=== PATIENT | female | born 1995 | race Caucasian/White ===

== ENCOUNTER 2017-09-25 11:08 | Emergency (ER) | payer MEDICAID, OTHER ==
[2017-09-25 11:14] VITALS: BMI 37.2
--- NOTE | 2017-09-25 12:01 | C.PDOC ---
History Of Present Illness 21 year old female presents to the ED complaining of left lower quadrant pain since yesterday. Associated symptoms include watery diarrhea, now resolved. Patient denies fever, nausea, or vomiting. LMP: August. LLQ PAIN SINCE YEST. +WATERY DIARRHEA, NOW RESOLVED. NO FEVER, [place]. LMP AUGUST. EXAM NAD ABD MILD LLQ TEND SOFT NO R/G REMAINDER NEG Time Seen by Provider: 09/25/17 11:25 Chief Complaint (Nursing): Abdominal Pain History Per: Patient History/Exam Limitations: no limitations Onset/Duration Of Symptoms: Days Current Symptoms Are (Timing): Still Present Location Of Pain/Discomfort: LLQ Quality Of Discomfort: "Pain" Associated Symptoms: Diarrhea. denies: Fever, Nausea, Vomiting Past Medical History Reviewed: Historical Data, Nursing Documentation, Vital Signs Vital Signs: Last Vital Signs Temp 98.6 F 09/25/17 11:15 Pulse 84 09/25/17 11:15 Resp 17 09/25/17 11:15 BP 106/73 09/25/17 11:15 Pulse Ox 100 09/25/17 13:06 - Medical History PMH: Gastritis Surgical History: No Surg Hx Family History: States: No Known Family Hx - Social History Hx Tobacco Use: No Hx Alcohol Use: Yes Hx Substance Use: No - Immunization History Hx Tetanus Toxoid Vaccination: No Hx Influenza Vaccination: No Hx Pneumococcal Vaccination: No Review Of Systems Except As Marked, All Systems Reviewed And Found Negative. Constitutional: Negative for: Fever, Chills Gastrointestinal: Positive for: Abdominal Pain (LLQ), Diarrhea. Negative for: Nausea, Vomiting Musculoskeletal: Positive for: Other Physical Exam - Physical Exam Appears: Non-toxic, No Acute Distress Skin: Normal Color, Warm, Dry Head: Atraumatic, Normacephalic Eye(s): bilateral: Normal Inspection Nose: Normal Oral Mucosa: Moist Neck: Supple Cardiovascular: Rhythm Regular Respiratory: Other (NARD) Gastrointestinal/Abdominal: Soft, Tenderness (Mild tenderness to LLQ), No Guarding, No Rebound Neurological/Psych: Oriented x3, Normal Speech Gait: Steady ED Course And Treatment - Laboratory Results Result Diagrams: 09/25/17 12:29 09/25/17 12:29 Urine POC: Negative O2 Sat by Pulse Oximetry: 100 (RA) Pulse Ox Interpretation: Normal Progress Note: Patient assessed and examined. Urine collected and sent to the labs for analysis. Patient given Fluids, Bentyl 20mg IM and Lomotil. Patient is resting comfortably, abdomen remains soft, and patient is tolerating PO. Patient feels comfortable going home. Patient will be discharged home and is being advised to follow up with physician/clinic in 1-2 days. Patient given Rx for Lonox and Bentyl. Progress - Data Reviewed Data Reviewed: Lab, Diagnostic imaging Disposition Counseled Patient/Family Regarding: Studies Performed, Diagnosis, Need For Followup, Rx Given - Disposition Referrals: [facility] [Outside] [facility] [Outside] Disposition: HOME/ ROUTINE Disposition Time: 13:00 Condition: IMPROVED Prescriptions: Atropine/Diphenoxylate [Lonox 0.025 MG-2.5 MG] 1 tab PO BID #6 tab Dicyclomine [Bentyl] 20 mg PO TID PRN #12 tab PRN Reason: Pain Instructions: Viral Gastroenteritis, Adult (DC) Forms: [employer] (Qatari) - Clinical Impression Clinical Impression: Diarrhea, Abdominal pain - Scribe Statement The provider has reviewed the documentation as recorded by the Scribconsuelo Montemayor All medical record entries made by the Omaribconsuelo were at my direction and personally dictated by me. I have reviewed the chart and agree that the record accurately reflects my personal performance of the history, physical exam, medical decision making, and the department course for this patient. I have also personally directed, reviewed, and agree with the discharge instructions and disposition.
[2017-09-25] MEDS ORDERED: Sodium Chloride 0.9% 1,000 ML IV ONE (12:02)
[2017-09-25] MEDS ORDERED: Atropine-Diphenoxylate 0.025-2.5 mg Tab PO STA (12:02)
[2017-09-25 12:21] LABS: SQUAMOUS EPITHIAL 10 /hpf (0-5); URINE BILIRUBIN NEGATIVE (NEGATIVE); URINE BLOOD NEGATIVE (NEGATIVE); URINE CLARITY Hazy (Clear); URINE COLOR Yellow (YELLOW); URINE GLUCOSE (UA) NORMAL (Normal); URINE LEUKOCYTE ESTERASE TRACE Leu/uL (Negative); URINE PROTEIN NEGATIVE (NEGATIVE); URINE UROBILINOGEN NORMAL mg/dL (0.2-1.0)
[2017-09-25] MEDS ORDERED: Sodium Chloride 0.9% 1,000 ML ONE (12:21)
[2017-09-25] MEDS ORDERED: Atropine-Diphenoxylate 0.025-2.5 mg Tab ONE (12:21)
[2017-09-25 12:38] LABS: BASO % 0.4 % (0.0-2.0); EOS # 0.1 K/uL (0.0-0.7); HEMOGLOBIN 12.6 g/dL (11.0-16.0); LYMPH # 1.6 K/uL (1.0-4.3); LYMPH % 17.3 % (20.0-40.0); MEAN CELL VOLUME 84.4 fL (81.0-99.0); MEAN CORPUSCULAR HEMOGLOBIN 28.6 pg (27.0-31.0); MEAN CORPUSCULAR HGB CONC 33.9 g/dL (33.0-37.0); MEAN PLATELET VOLUME 9.7 fL (7.2-11.7); MONO # 0.5 K/uL (0.0-0.8); MONO % 5.3 % (0.0-10.0); NEUT # 6.9 K/uL (1.8-7.0); RBC 4.39 Mil/uL (3.80-5.20); WHITE BLOOD COUNT 9.1 K/uL (4.8-10.8)
[2017-09-25 12:53] LABS: BLOOD UREA NITROGEN 11 mg/dL (7-17); CALCIUM 9.2 mg/dl (8.6-10.4); GFR AFRICAN-AMERICAN > 60; GFR NON-AFRICAN AMERICAN > 60
[2017-09-25 13:19] VITALS: BP 126/73; PULSE 76; RESP 18; TEMP 98; O2SAT 98
== END 2017-09-25 13:18 | disposition home or self-care (01) ==
LOC: C.ER 11:08
DX: R10.32 Left lower quadrant pain (principal); R19.7 Diarrhea, unspecified
CPT/HCPCS: 80048; 81001; 85025; 96360; 96372; 99284; J0500; J7030

== ENCOUNTER 2018-01-25 17:19 | Emergency (ER) | payer OTHER ==
[2018-01-25 17:19] VITALS: BMI 37.2
[2018-01-25 17:37] VITALS: O2SAT 100
[2018-01-25 18:25] LABS: SQUAMOUS EPITHIAL 3 /hpf (0-5); URINE BILIRUBIN NEGATIVE (NEGATIVE); URINE CLARITY Clear (Clear); URINE COLOR Yellow (YELLOW); URINE GLUCOSE (UA) NORMAL (Normal); URINE LEUKOCYTE ESTERASE NEG Leu/uL (Negative); URINE PROTEIN NEGATIVE (NEGATIVE); URINE UROBILINOGEN NORMAL mg/dL (0.2-1.0)
[2018-01-25 18:27] LABS: URINE BLOOD 1+ (NEGATIVE)
[2018-01-25 18:32] LABS: HCG,QUALITATIVE URINE NEGATIVE (NEGATIVE)
[2018-01-25] MEDS ORDERED: Lidocaine 5% Patch TD STA (18:41)
--- NOTE | 2018-01-25 20:36 | C.PDOC ---
History Of Present Illness 22 year old female presents to the ED for evaluation of lower back pain that radiates into her right leg for 3-4 days. Patient denies injury/trauma to the area, falls, lifting heavy objects, fever, chills, urinary/bowel incontinence, extremity numbness/weakness. Chief Complaint (Nursing): Back Pain History Per: Patient History/Exam Limitations: no limitations Onset/Duration Of Symptoms: Days (3-4) Current Symptoms Are (Timing): Still Present Quality Of Discomfort: "Pain" Previous Symptoms: Back Pain Associated Symptoms: denies: Incontinence, New Weakness, New Numbness Additional History Per: Patient Past Medical History Reviewed: Historical Data, Nursing Documentation, Vital Signs Vital Signs: Last Vital Signs Temp 98.2 F 01/25/18 17:34 Pulse 82 01/25/18 17:34 Resp 18 01/25/18 17:34 BP 111/82 01/25/18 17:34 Pulse Ox 100 01/25/18 17:34 - Medical History PMH: Gastritis Surgical History: No Surg Hx Family History: States: Unknown Family Hx - Social History Hx Tobacco Use: No Hx Alcohol Use: Yes Hx Substance Use: No - Immunization History Hx Tetanus Toxoid Vaccination: No Hx Influenza Vaccination: No Hx Pneumococcal Vaccination: No Review Of Systems Constitutional: Negative for: Fever, Chills Genitourinary: Negative for: Incontinence Musculoskeletal: Positive for: Back Pain, Leg Pain (right ) Neurological: Negative for: Weakness, Numbness Physical Exam - Physical Exam Appears: Non-toxic, No Acute Distress Skin: Normal Color, Warm, Dry Head: Atraumatic, Normacephalic Eye(s): bilateral: Normal Inspection Oral Mucosa: Moist Neck: Supple Back: Paraspinal Tenderness (right-sided ), Other (buttock tenderness ) Extremity: Normal ROM, No Tenderness, Capillary Refill (less than 2 seconds ), No Deformity, No Swelling Neurological/Psych: Oriented x3, Normal Speech, Normal Cognition, Normal Sensation Gait: Steady ED Course And Treatment O2 Sat by Pulse Oximetry: 100 (on RA) Pulse Ox Interpretation: Normal Progress Note: UA and LS Spine AP/LAT ordered, results are negative. Toradol IM, Valium PO, Lidoderm TD given. On reassessment, patient is resting comfortably, showing no signs of distress, and is ambulatory in the ED with a steady gait. Patient is advised to follow up with PMD within 1-2 days for further evaluation. Reassessment Condition: Improved Disposition Discussed With Dr.: Issac De La Rosa - Disposition Referrals: [facility] [Outside] Disposition: HOME/ ROUTINE Disposition Time: 20:43 Condition: GOOD Additional Instructions: Follow up within 1-2 days. Return to ED if child feels worse. 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 - Scribe Statement The provider has reviewed the documentation as recorded by the Scribe (Meena Stanton) All medical record entries made by the Scribe were at my direction and personally dictated by me. I have reviewed the chart and agree that the record accurately reflects my personal performance of the history, physical exam, medical decision making, and the department course for this patient. I have also personally directed, reviewed, and agree with the discharge instructions and disposition.
[2018-01-25 20:44] VITALS: BP 117/78; PULSE 63; RESP 20; TEMP 97.8
--- NOTE | 2018-01-26 09:33 | RAD ---
Date of service: 01/25/2018 PROCEDURE: Radiographs of the Lumbar Spine. HISTORY: pain COMPARISON: No prior. FINDINGS: BONES: Normal alignment. No listhesis. No fracture. DISC SPACES: Unremarkable. OTHER FINDINGS: Moderate Stool retention. No bowel obstruction appreciated. 2 mm left hemipelvic calcification IMPRESSION: No lumbar spine pathology noted. Other findings as above.
== END 2018-01-25 21:00 | disposition home or self-care (01) ==
LOC: C.ER 17:19
DX: M54.5 Low back pain (principal)
CPT/HCPCS: 72100; 81001; 84703; 96372; 99284; J1885